=== PATIENT | male | born 1950 | race Caucasian/White ===

== ENCOUNTER 2018-12-16 09:53 | Emergency (ER) | payer OTHER ==
[2018-12-16 10:59] LABS: Absolute Lymphocytes (CBC) 2.2 K/uL (0.7-4.9); Absolute Monocytes 0.8 K/uL (0.1-1.3); Absolute Neutrophil 3.2 K/uL (1.8-8.0); Basophils % 0.9 % (0-1.3); Eosinophils % 2.3 % (0-4.4); Hematocrit 46.2 % (39.6-49.0); Lymphocytes % 34.1 % (15.3-44.8); MPV 8.5 fL (7.6-11.3); Monocytes % 12.4 % (3.3-12.3); RBC Red Blood Cell Count 5.48 M/uL (4.33-5.43)
[2018-12-16 11:04] LABS: Protime INR 1.03
[2018-12-16 11:21] LABS: ALT/SGPT 76 U/L (12-78); AST/SGOT 42 U/L (15-37); Albumin 3.9 g/dL (3.4-5.0); Alkaline Phosphatase 89 U/L (45-117); BUN Blood Urea Nitrogen 14 mg/dL (7-18); Bicarbonate 28 mmol/L (21-32); Bilirubin Direct 0.2 mg/dL (0-0.2); Bilirubin Total 0.8 mg/dL (0.2-1.0); Glucose Level 94 mg/dL (74-106); Magnesium 2.1 mg/dL (1.8-2.4); NT PRO-BNP 25 pg/mL (<125); Potassium 3.8 mmol/L (3.5-5.1); Protein, Total 7.6 g/dL (6.4-8.2); Sodium Level 142 mmol/L (136-145); Troponin (Emerg Dept Use Only) < 0.02 ng/mL (0.0-0.045)
--- NOTE | 2018-12-16 12:46 | ER ---
Nurse's Notes [facility] Name: Zac Werner Age: 68 yrs Sex: Male : 1950 Arrival Date: 12/16/2018 Time: 09:55 Bed 15 Private MD: Dawit Beyer B Diagnosis: Palpitations;Chest pain, unspecified Presentation: 12/16 10:01 Presenting complaint: Patient states: i had this irregular heartbeat for a month now, hj and whenever it happens my chest hurts; pain 5/10; reports radiating pain on L upper arm; denies SOB;. Transition of care: patient was not received from another setting of care. Onset of symptoms was December 16, 2018. Risk Assessment: Do you want to hurt yourself or someone else? Patient reports no desire to harm self or others. Initial Sepsis Screen: Does the patient meet any 2 criteria? No. Patient's initial sepsis screen is negative. Does the patient have a suspected source of infection? No. Patient's initial sepsis screen is negative. Care prior to arrival: None. 10:01 Method Of Arrival: Ambulatory 10:01 Acuity: VINCE 3 hj Triage Assessment: 10:03 General: Appears in no apparent distress. Behavior is calm, cooperative, appropriate hj for age. Pain: Complains of pain in chest. Historical: - Allergies: 10:03 No Known Drug Allergies; hj - PMHx: 10:03 Hypertension; Glaucoma; hj - PSHx: 10:03 Lithotripsy; spinal fusion; Cholecystectomy; Hernia repair; hj - Immunization history:: Adult Immunizations up to date. - Social history:: The patient lives at home, Smoking status: Patient/guardian denies using tobacco. - Ebola Screening: : Patient negative for fever greater than or equal to 101.5 degrees Fahrenheit, and additional compatible Ebola Virus Disease symptoms. Screenin:10 Abuse screen: Denies threats or abuse. Nutritional screening: No deficits noted. rb1 Tuberculosis screening: No symptoms or risk factors identified. Fall Risk None identified. Assessment: 10:10 General: Appears in no apparent distress. comfortable, Behavior is calm, cooperative, rb1 Denies fever, feeling ill. Pain: Complains of pain in chest Pain radiates to left arm Pain currently is 5 out of 10 on a pain scale. Neuro: Level of Consciousness is awake, alert, obeys commands, Oriented to person, place, time, situation. Cardiovascular: Capillary refill < 3 seconds is brisk in bilateral fingers. Respiratory: Airway is patent Respiratory effort is even, unlabored, Respiratory pattern is regular, symmetrical, Denies shortness of breath. GI: No signs and/or symptoms were reported involving the gastrointestinal system. : No signs and/or symptoms were reported regarding the genitourinary system. Derm: Skin is pink, warm \T\ dry. 10:10 Pain: Pain began x 1 month. rb1 11:00 Reassessment: Patient appears in no apparent distress at this time. No changes from rb1 previously documented assessment. 12:00 Reassessment: Patient appears in no apparent distress at this time. Patient and/or rb1 family updated on plan of care and expected duration. Pain level reassessed. Patient is alert, oriented x 3, equal unlabored respirations, skin warm/dry/pink. 13:00 Reassessment: Patient appears in no apparent distress at this time. No changes from rb1 previously documented assessment. Vital Signs: 10:03 BP 153 / 93; Pulse 86; Resp 18; Temp 98.8(O); Pulse Ox 99% on R/A; Weight 113.4 kg; Height 6 ft. 2 in. (187.96 cm); Pain 5/10; 11:00 BP 124 / 72; Pulse 75; Resp 13; Pulse Ox 96% on R/A; Pain 5/10; rb1 12:00 BP 119 / 71; Pulse 75; Resp 15; Pulse Ox 96% ; Pain 4/10; rb1 13:00 BP 127 / 78; Pulse 78; Resp 16; Pulse Ox 96% on R/A; rb1 10:03 Body Mass Index 32.10 (113.40 kg, 187.96 cm) ED Course: 09:55 Patient arrived in ED. as 09:56 Dawit Beyer MD is Private Physician. as 10:03 Triage completed. hj 10:10 Patient maintains SpO2 saturation greater than 95% on room air. rb1 10:10 Patient has correct armband on for positive identification. Bed in low position. Call rb1 light in reach. Side rails up X 1. regulatory scientist on. Pulse ox on. NIBP on. Warm blanket given. 10:10 Arm band placed on right wrist. rb1 10:14 Aury Lincoln, RN is Primary Nurse. rb1 10:14 EKG done, by health type technician. dt2 10:21 Jose Pena MD is Attending Physician. 10:21 Inserted saline lock: 22 gauge in right antecubital area, using aseptic technique. jb1 Blood collected. 10:22 Initial lab(s) drawn, by me. jb1 12:42 X-ray completed. Portable x-ray completed in exam room. 12:43 Zen Haley MD is Referral Physician. 12:44 XRAY Chest (1 view) In Process Unspecified. EDMS 13:17 No provider procedures requiring assistance completed. IV discontinued, intact, rb1 bleeding controlled, No redness/swelling at site. Pressure dressing applied. Administered Medications: No medications were administered Outcome: 12:45 Discharge ordered by . 13:17 Discharged to home ambulatory. rb1 13:17 Condition: stable 13:17 Discharge instructions given to patient, Instructed on discharge instructions, follow up and referral plans. Demonstrated understanding of instructions, follow-up care, Prescriptions given X none 13:23 Patient left the ED. rb1 Signatures: Dispatcher [employer] EDMS Zac Montana jb1 Marcela Waldron Shannon Vazquez Piña RN RN Aury Lincoln, ELDA RN rb1 Jose Pena MD MD Shelby Arguello dt2 Corrections: (The following items were deleted from the chart) 10:05 10:03 Pulse 86bpm; Resp 18bpm; Pulse Ox 99% RA; Temp 98.8F Oral; 113.4 kg; Height 6 ft. hj 2 in.; BMI: 32.1; Pain 5/10; hj 10:06 10:03 Pulse 86bpm; Resp 18bpm; Pulse Ox 99% RA; Temp 98.8F Oral; 113.4 kg; Height 6 ft. hj 2 in.; BMI: 32.1; Pain 5/10; hj
--- NOTE | 2018-12-16 12:46 | EDPHYS ---
Physician Documentation [facility] Name: Zac Werner Age: 68 yrs Sex: Male : 1950 Arrival Date: 12/16/2018 Time: 09:55 Bed 15 Private MD: Dawit Beyer B ED Physician Jose Pena HPI: 12/16 11:36 This 68 yrs old Male presents to ER via Ambulatory with complaints of Chest gs Pain, Palpitations. 11:36 The patient presents with a history of heart skipping beats. Context: The symptoms gs occur at rest. Onset: The symptoms/episode began/occurred 1 month(s) ago. Duration: The patient or guardian reports multiple episodes, that wax and wane, with no pattern, the episodes last approximately 5 second(s). Modifying factors: The symptoms are aggravated by nothing. The symptoms are alleviated by nothing. Associated signs and symptoms: Pertinent positives: chest pain, MILD DULL BRIEF. Severity of symptoms: At their worst the symptoms were moderate in the emergency department the symptoms have improved markedly. The patient has experienced similar episodes in the past, a few times. Historical: - Allergies: 10:03 No Known Drug Allergies; hj - PMHx: 10:03 Hypertension; Glaucoma; hj - PSHx: 10:03 Lithotripsy; spinal fusion; Cholecystectomy; Hernia repair; hj - Immunization history:: Adult Immunizations up to date. - Social history:: The patient lives at home, Smoking status: Patient/guardian denies using tobacco. - Ebola Screening: : Patient negative for fever greater than or equal to 101.5 degrees Fahrenheit, and additional compatible Ebola Virus Disease symptoms. ROS: 11:36 All other systems are negative. gs Exam: 11:36 Head/Face: Normocephalic, atraumatic. Eyes: Pupils equal round and reactive to light, gs extra-ocular motions intact. Lids and lashes normal. Conjunctiva and sclera are non-icteric and not injected. Cornea within normal limits. Periorbital areas with no swelling, redness, or edema. ENT: Nares patent. No nasal discharge, no septal abnormalities noted. Tympanic membranes are normal and external auditory canals are clear. Oropharynx with no redness, swelling, or masses, exudates, or evidence of obstruction, uvula midline. Mucous membranes moist. Neck: Trachea midline, no thyromegaly or masses palpated, and no cervical lymphadenopathy. Supple, full range of motion without nuchal rigidity, or vertebral point tenderness. No Meningismus. Chest/axilla: Normal chest wall appearance and motion. Nontender with no deformity. No lesions are appreciated. Cardiovascular: Regular rate and rhythm with a normal S1 and S2. No gallops, murmurs, or rubs. Normal PMI, no JVD. No pulse deficits. Respiratory: Lungs have equal breath sounds bilaterally, clear to auscultation and percussion. No rales, rhonchi or wheezes noted. No increased work of breathing, no retractions or nasal flaring. Abdomen/GI: Soft, non-tender, with normal bowel sounds. No distension or tympany. No guarding or rebound. No evidence of tenderness throughout. Back: No spinal tenderness. No costovertebral tenderness. Full range of motion. Skin: Warm, dry with normal turgor. Normal color with no rashes, no lesions, and no evidence of cellulitis. MS/ Extremity: Pulses equal, no cyanosis. Neurovascular intact. Full, normal range of motion. Neuro: Awake and alert, GCS 15, oriented to person, place, time, and situation. Cranial nerves II-XII grossly intact. Motor strength 5/5 in all extremities. Sensory grossly intact. Cerebellar exam normal. Normal gait. 11:36 Constitutional: The patient appears alert, awake. 11:36 ECG was reviewed by the Attending Physician. Vital Signs: 10:03 BP 153 / 93; Pulse 86; Resp 18; Temp 98.8(O); Pulse Ox 99% on R/A; Weight 113.4 kg; hj Height 6 ft. 2 in. (187.96 cm); Pain 5/10; 11:00 BP 124 / 72; Pulse 75; Resp 13; Pulse Ox 96% on R/A; Pain 5/10; rb1 12:00 BP 119 / 71; Pulse 75; Resp 15; Pulse Ox 96% ; Pain 4/10; rb1 13:00 BP 127 / 78; Pulse 78; Resp 16; Pulse Ox 96% on R/A; rb1 10:03 Body Mass Index 32.10 (113.40 kg, 187.96 cm) MDM: 10:45 Patient medically screened. 11:36 Differential diagnosis: arrythmia, dehydration, stress disorder, cad. Data reviewed: vital signs, nurses notes, lab test result(s), EKG, radiologic studies. Counseling: I had a detailed discussion with the patient and/or guardian regarding: the historical points, exam findings, and any diagnostic results supporting the discharge/admit diagnosis, lab results, radiology results, the need for outpatient follow up, a clinical interviewer. Response to treatment: the patient's symptoms have markedly improved after treatment, and as a result, I will discharge patient. 12/16 10:45 Order name: Basic Metabolic Panel; Complete Time: 11:43 12/16 10:45 Order name: CBC with Diff; Complete Time: 11:43 12/16 10:45 Order name: LFT's; Complete Time: :43 12/16 10:45 Order name: Magnesium; Complete Time: :43 12/16 10:45 Order name: NT PRO-BNP; Complete Time: 11:43 12/16 10:45 Order name: PT-INR; Complete Time: 11:43 12/16 10:06 Order name: EKG; Complete Time: 10:06 12/16 10:45 Order name: Troponin (emerg Dept Use Only); Complete Time: 11:43 12/16 10:45 Order name: XRAY Chest (1 view); Complete Time: 12:58 12/16 12:40 Interpretation: No acute disease. 12/16 10:45 Order name: Cardiac monitoring; Complete Time: 10:48 12/16 10:45 Order name: IV Saline Lock; Complete Time: 10:48 12/16 10:45 Order name: Labs collected and sent; Complete Time: 10:48 12/16 10:45 Order name: O2 Per Protocol; Complete Time: 10:48 12/16 10:45 Order name: O2 Sat Monitoring; Complete Time: 10:48 EC:36 Rate is 82 beats/min. Rhythm is regular with PACs. IL interval is normal. QRS interval gs is normal. QT interval is normal. No ST changes noted. Clinical impression: Abnormal EKG without significant change. Interpreted by me. Administered Medications: No medications were administered Disposition: 12/16/18 12:45 Discharged to Home. Impression: Palpitations, Chest pain, unspecified. - Condition is Stable. - Discharge Instructions: Nonspecific Chest Pain, Palpitations. - Work release form, Medication Reconciliation Form, Thank You Letter, Antibiotic Education, Prescription Opioid Use form. - Follow up: Zen Haley MD; When: 2 - 3 days; Reason: Re-evaluation by your physician. Signatures: Dispatcher [employer] EDMS Vazquez Piña RN RN hj Aury Lincoln RN RN rb1 Jose Pena MD MD gs Corrections: (The following items were deleted from the chart) 12:40 12:40 No acute disease except. [facility] 13:23 12:45 12/16/2018 12:45 Discharged to Home. Impression: Palpitations; Chest pain, rb1 unspecified. Condition is Stable. Forms are Medication Reconciliation Form, Thank You Letter, Antibiotic Education, Prescription Opioid Use. Follow up: Zen Haley; When: 2 - 3 days; Reason: Re-evaluation by your physician. gs
--- NOTE | 2018-12-16 12:56 | RAD REPORT ---
EXAM DESCRIPTION: RAD - Chest Single View - 12/16/2018 12:43 pm CLINICAL HISTORY: CHEST PAIN Chest pain. COMPARISON: ABDOMEN 1 VIEW KUB dated 04/21/2015; CHEST SINGLE VIEW dated 03/24/2015; ABDOMEN 1 VIEW KU B dated 02/28/2015; CHEST PA AND LAT 2 VIEW dated 09/24/2013 FINDINGS: Portable technique limits examination quality. The lungs are grossly clear. The heart is normal in size. No displaced fractures. IMPRESSION: No acute intrathoracic process suspected.
[2018-12-16 13:30] VITALS: TEMP 98.8
[2018-12-16 13:31] VITALS: O2SAT 96
[2018-12-16 13:35] VITALS: BP 127/78
== END 2018-12-16 13:23 | disposition home or self-care (01) ==
LOC: ER 09:53
DX: R00.2 Palpitations (principal); I10 Essential (primary) hypertension
CPT/HCPCS: 36415; 71045; 80048; 80076; 83735; 83880; 84484; 85025; 85610; 93005; 99285